=== PATIENT | female | born 1965 | race Two or more races ===

== ENCOUNTER 2018-06-21 13:25 | Day surgery (SDC) | payer OTHER ==
[~2018-06-21 13:25] MED LIST: HYDROCODONE/APAP 5/325 TAB PO SCH
[2018-06-21] MEDS ORDERED: HYDROmorphONE/DILAUDID 2 MG/ML INJ IVP ONE ×2 (14:00→17:31)
[2018-06-21] MEDS ORDERED: ONDANSETRON 4 MG/2 ML VIAL IVP ONE (14:00)
[2018-06-21] MEDS ORDERED: NS 1,000 ML IV ONE ×2 (14:00→17:31)
[2018-06-21 14:18] LABS: PLATELET COUNT 248 10^3/uL (150-400)
[2018-06-21] MEDS ORDERED: IOPAMIDOL (ISOVUE-300) 100 ML BTL ONE (16:31)
--- NOTE | 2018-06-21 17:30 | EDPHY ---
H & P Stated Complaint: abd pain worsening since last night, + nausea, shivering Time Seen by Provider: 06/21/18 13:42 HPI/ROS: CHIEF COMPLAINT: Abdominal pain HISTORY OF PRESENT ILLNESS: 52-year-old female reports that yesterday she developed a midline lower abdominal discomfort described as crampy and slightly distended. She thought maybe she was getting her period. She is perimenopausal and has not had. For about 4 months. Some nausea. She did not developed vaginal bleeding. This morning the pain has been persistent and she is also complaining of some epigastric discomfort. No fever. No diarrhea. No urinary complaints. No similar episodes of pain. No fever, chills, chest pain, shortness of breath, palpitations, vomiting, diarrhea, urinary complaints, headache, lightheadedness. REVIEW OF SYSTEMS: A comprehensive 10 system review of systems was reviewed and is otherwise negative aside from elements mentioned in the history of present illness and medical decision making. PAST MEDICAL HISTORY: Monica menopausal, reports no sexual activity for the last 3 years. On no hormonal replacement therapy. SOCIAL HISTORY: Smoker. VITAL SIGNS Reviewed by me. GENERAL: Well-developed, well-nourished, pleasant, uncomfortable appearing. Rates her pain at 7/10. HEENT: Atraumatic. Eyes: No icterus, no injection. Mouth: Slightly dry mucous membranes. No erythema or lesions. Neck: supple with no adenopathy. LUNGS: Clear to auscultation bilaterally, no wheezes, rhonchi or rales. CARDIAC: Regular rate and rhythm, no rubs, murmurs or gallops. ABDOMEN: [Soft, mild tenderness epigastric area, no guarding or rebound. Moderate midline, right lower quadrant, and left lower quadrant tenderness to palpation with slight distention. BACK: Mild right CVA tenderness. EXTREMITIES: No trauma. No edema. Range of motion is normal throughout. NEURO: Alert and oriented, grossly nonfocal. SKIN: Warm and dry, no rash. PSYCHIATRIC: Normal mentation, no agitation. - Personal History LMP (Females 10-55): Irregular Current Tetanus Diphtheria and Acellular Pertussis (TDAP): Unsure - Medical/Surgical History Hx Asthma: No Hx Chronic Respiratory Disease: No Hx Diabetes: No Hx Cardiac Disease: No Hx Renal Disease: No Hx Cirrhosis: No Hx Alcoholism: No Hx HIV/AIDS: No Hx Splenectomy or Spleen Trauma: No Other PMH: denies - Social History Smoking Status: Heavy smoker Constitutional: Initial Vital Signs Temperature (C) 36.6 C 06/21/18 13:31 Heart Rate 59 L 06/21/18 13:31 Respiratory Rate 16 06/21/18 13:31 Blood Pressure 174/103 H 06/21/18 13:31 O2 Sat (%) 100 06/21/18 13:31 O2 Delivery Mode Room Air O2 (L/minute) 10 Allergies/Adverse Reactions: No Known Allergies Allergy (Unverified 06/21/18 13:35) Home Medications: Medication Instructions Recorded Acetaminophen [Tylenol ES 500 mg 1,000 mg PO DAILY PRN 06/21/18 (*)] Hydrocodone/Acetaminophen [Regan 1 each PO Q4H PRN 1 Days #6 tablet 06/21/18 5-325 Tablet] Hydrocodone/Acetaminophen [Regan 1 each PO Q4H PRN 3 Days #15 tablet 06/21/18 5-325 Tablet] Ibuprofen 600 mg PO Q8H PRN #20 tablet 06/21/18 Medical Decision Making - Diagnostics Imaging Results: Pelvic US: Impression: 1. No uterine leiomyomata. 2. No ovarian torsion or cystic lesions. 3. Left adnexal nonvascular tubular structure, which may represent a thrombosed vein or possibly bowel. 4. Consider additional CT abdomen and pelvis, if clinically indicated. Findings and recommendations discussed with Emergency Department physician, Karen Meyer M.D., at 1555 hours, on June 21, 2018. Final report concurs with initial preliminary interpretation. Dictated By: Nehemiah Walden CT Abd Pelvis Impression: 1. Acute appendicitis with thickening up to 14 mm. 2. L5-S1 spondylolytic grade 1 spondylolisthesis, resulting in bilateral neural foraminal stenosis. Dictated By: Nehemiah Walden ED Course/Re-evaluation: 52-year-old female with midline lower abdominal tenderness and pain. Pelvic ultrasound ordered. No significant abnormalities. No fibroids or ovarian cysts or torsion. Of note, patient's test returned positive. Quantitative HCG was 5.79. Long conversation held with the patient again. Reports notes she will intercourse for the last 3 years. Doubt this low level HCG represents intrauterine . CT scan ordered with IV contrast for further evaluation. CT scan positive for appendicitis with a 14 mm appendix. Discussed with the patient. Advised NPO. Discussed with Dr. Elisabeth Hoffmann. Dr. Rodriguez also aware of the low level positive HCG. Patient admitted to [facility], Dr. Hoffmann, appendicitis. Differential Diagnosis: The differential diagnosis for the patient's abdominal pain was considered including but not limited to ovarian cyst, pelvic inflammatory disease, ovarian torsion, urinary tract infection, related complications, and appendicitis. Consult/Admit Bed Type: Dr Hoffmann [facility] - Data Points Laboratory Results: Laboratory Results 06/21/18 14:07 06/21/18 14:07 Medications Given: Discontinued Medications Bupivacaine HCl (Sensorcaine 0.5% Vial) Confirm Administered Dose 30 ml .ROUTE .STK-MED ONE Stop: 06/21/18 17:56 Last Admin: 06/21/18 20:39 Dose: 20 ml Fentanyl (Sublimaze) 25 - 100 mcg IVP Q5M PRN PRN Reason: PACU, IMMEDIATE Pain control Stop: 06/21/18 21:24 Last Admin: 06/21/18 21:21 Dose: 50 mcg Hydromorphone HCl (Dilaudid) 1 mg IVP EDNOW ONE Stop: 06/21/18 14:01 Last Admin: 06/21/18 14:31 Dose: 1 mg Hydromorphone HCl (Dilaudid) 1 mg IVP EDNOW ONE Stop: 06/21/18 17:32 Last Admin: 06/21/18 18:06 Dose: 1 mg Sodium Chloride (Ns) 1,000 mls @ 0 mls/hr IV EDNOW ONE; Wide Open PRN Reason: Protocol Stop: 06/21/18 14:01 Last Admin: 06/21/18 14:35 Dose: 1,000 mls Sodium Chloride (Ns) 1,000 mls @ 0 mls/hr IV ONCE ONE; Wide Open PRN Reason: Protocol Stop: 06/21/18 17:32 Last Admin: 06/21/18 17:33 Dose: 1,000 mls Ondansetron HCl (Zofran) 4 mg IVP EDNOW ONE Stop: 06/21/18 14:01 Last Admin: 06/21/18 14:31 Dose: 4 mg Departure - Departure Disposition: [facility] Inpatient Acute Clinical Impression: Abdominal pain, Acute appendicitis Condition: Good
[2018-06-21] MEDS ORDERED: BUPIVACAINE 0.5% 30 ML SDV ONE (17:55)
[2018-06-21] MEDS ORDERED: DEXAMETHASONE 4 MG/ML VIAL IVP PRN (18:27)
[2018-06-21] MEDS ORDERED: NALOXONE HCL 0.4 MG/ML INJ IVP PRN ×2 (18:27→20:24)
[2018-06-21] MEDS ORDERED: HYDROmorphONE/DILAUDID 1 MG/ML INJ IVP PRN ×2 (18:27→20:24)
[2018-06-21] MEDS ORDERED: ALBUTEROL 3 ML DEYVIAL IH PRN ×2 (18:27→20:24)
[2018-06-21] MEDS ORDERED: ONDANSETRON 4 MG/2 ML VIAL IVP PRN ×2 (18:27→20:24)
[2018-06-21] MEDS ORDERED: PROPOFOL 200 MG/20 ML VIAL ONE (18:32)
[2018-06-21] MEDS ORDERED: ROCURONIUM 50 MG/5 ML VIAL ONE (18:34)
--- NOTE | 2018-06-21 19:08 | GHP ---
[f rep st] HISTORY AND PHYSICAL DATE OF ADMISSION: 06/21/2018 CHIEF COMPLAINT: Acute appendicitis. HISTORY OF PRESENT ILLNESS: The patient is a 52-year-old woman, who developed low pelvic pain. She thought that it had to do with menstrual cramping. It became more severe throughout the day includin g the upper abdomen and then localized worse in the right lower quadrant. She presented to the [facility] ency room. She had an abdominal CT performed that showed a 14 mm appendix. White count is 11.72. S he is not hungry. PAST SURGICAL HISTORY: D and C. SOCIAL HISTORY: She is a nonsmoker. She is and has 2 children, ages 12 and 16. FAMILY HISTORY: Noncontributory. REVIEW OF SYSTEMS: No fevers or chills. PHYSICAL EXAMINATION: VITAL SIGNS: 36.6, 59, 174/103, 16, and 100% on room air. GENERAL: A pleasa nt, well-nourished, ill patient lying on gurney. HEENT: Normocephalic. No gross hearing deficits. Mucous membranes moist. Pupils equal and round. No scleral icterus. LUNGS: Clear to auscultation bilaterally. No increased work of breathing. CARDIAC: Regular rate. No peripheral edema. ABDOME N: Bowel sounds present. She is soft. She is tender all over, but worse in the right lower quadran t. MUSCULOSKELETAL: Normal nails. NEUROLOGICAL: Grossly intact. PSYCHIATRIC: Mood and affect no rmal. RESULTS: Reviewed. I personally reviewed the results of her laboratory work and CT scan. IMPRESSION/PLAN: The patient has acute appendicitis. We will go to the operating room for a laparos copic appendectomy. The risks and benefits, including but not limited to stroke, heart attack, , blood clots, infection, bleeding, and damage to surrounding structures were discussed. She receive d antibiotics in the emergency room. /[id number]/MODL
[2018-06-21] MEDS ORDERED: fentaNYL 100 MCG/2 ML INJ ONE ×2 (20:10→20:59)
--- NOTE | 2018-06-21 20:24 | PDANEPAE ---
ANE History of Present Illness Anaya Staufferakin ABBE Past Medical History - Cardiovascular History Hx Hypertension: No Hx Arrhythmias: No - Pulmonary History Hx Oxygen in Use at Home: No Hx Sleep Apnea: No - Endocrine History Hx Diabetes: No ANE Review of Systems Review of Systems: ANE Patient History - Allergies Allergies/Adverse Reactions: No Known Allergies Allergy (Unverified 06/21/18 13:35) - Home Medications Home Medications: Acetaminophen [Tylenol ES 500 mg (*)] 1,000 mg PO DAILY PRN 06/21/18 [Last Taken Unknown] - NPO status NPO Since - Liquids (Date): 06/21/18 NPO Since - Liquids (Time): 09:00 NPO Since - Solids (Date): 06/20/18 NPO Since - Solids (Time): 21:00 - Smoking Hx Smoking Status: Heavy smoker ANE Labs/Vital Signs - Labs Result Diagrams: 06/21/18 14:07 06/21/18 14:07 - Vital Signs Blood Pressure: 152/87 Heart Rate: 59 Respiratory Rate: 16 O2 Sat (%): 99 Height: 165 cm Weight: 62 kg ANE Physical Exam - Airway Neck exam: FROM Mallampati Score: Class 2 Mouth exam: normal dental/mouth exam - Pulmonary Pulmonary: clear to auscultation - Cardiovascular Cardiovascular: regular rate and rhythym - ASA Status ASA Status: I, E ANE Anesthesia Plan Anesthesia Plan: general endotracheal anesthesia
[2018-06-21] MEDS ORDERED: SUGAMMADEX SODIUM 200 MG/2 ML VIAL IVP ONE (20:44)
[2018-06-21] MEDS ORDERED: ONDANSETRON 4 MG/2 ML VIAL ONE (20:44)
[2018-06-21] MEDS ORDERED: DEXAMETHASONE 4 MG/ML VIAL ONE (20:44)
--- NOTE | 2018-06-21 20:53 | POSTANESTH ---
Post Anesthetic Evaluation Cardiovascular Status: Normal, Stable Respiratory Status: Normal, Stable Level of Consciousness/Mental Status: Can Participate in Eval, Alert and Oriented Pain Control: Adequate, Prn Tx Ordered Nausea/Vomiting Control: Adequate, Prn Tx Ordered Complications Possibly Related to Anesthesia: None Noted
--- NOTE | 2018-06-21 20:55 | POSTOPPROG ---
Post Op Note Date of Operation: 06/21/18 Surgeon: Elisabeth Hoffmann Anesthesiologist: cesia Anesthesia: GET(General Endotracheal) Pre-op Diagnosis: acute appendicitis Post-op Diagnosis: same Indication: 52 yo with appendicitis Procedure: lap appy Findings: inflamed appendix Inf/Abcess present in the surg proc area at time of surgery?: No EBL: Minimal Specimen(s): appendix
[2018-06-21] MEDS: fentaNYL 100 MCG/2 ML INJ IVP PRN ×2 (21:11→21:21)
--- NOTE | 2018-06-21 22:54 | GOP ---
[f rep st] OPERATIVE REPORT DATE OF OPERATION: 06/21/2018 SURGEON: Elisabeth Hoffmann MD ANESTHESIOLOGIST: Billy Ramirez DO. PREOPERATIVE DIAGNOSIS: Acute appendicitis. POSTOPERATIVE DIAGNOSIS: Acute appendicitis. PROCEDURE PERFORMED: Laparoscopic appendectomy. FINDINGS: Inflamed appendix. SPECIMENS: Appendix. ESTIMATED BLOOD LOSS: 5 cc. INDICATIONS: The patient is a 52 year old who developed abdominal pain. CT scan confirmed acute kelvin endicitis. DESCRIPTION OF PROCEDURE: Patient was brought into the operating room, placed supine on the table, a nd general anesthesia was administered. Her abdomen was prepped and draped in the usual sterile fas ion. I infiltrated all sites with 0.5% Marcaine prior to making incisions. I made an incision benea th her umbilicus. I inserted the Veress needle. It passed the hanging drop test. Her abdomen insuf flated easily to a pressure of 15 mmHg. I placed a 5 mm trocar with a camera at the site. There wer e no injuries from Veress needle placement. Under direct vision, I placed a 5 mm suprapubic trocar a nd a 10 mm trocar in the left lower quadrant. I lifted her cecum up and identified a retrocecal appe ndix. I grasped the appendix and divided the mesoappendix with the Harmonic Scalpel. I transected t he base with an Endo-DANIA 45 white load. The appendix was placed in an EndoCatch bag and retrieved vi a the 10 mm trocar. Hemostasis achieved at the staple line. The ports were removed under direct vis ion. The abdomen allowed to desufflate. The fascia at the 10 mm trocar site was closed with 0 Vicry l. Skin closed with 4-0 Monocryl. Dermabond applied. She was awakened in the operating room, extub ated, and transferred to PACU in stable condition. /[id number]/MODL
[2018-06-21 23:00] VITALS: BP 122/79
== END 2018-06-21 22:40 | disposition home or self-care (01) ==
LOC: UNDOADMOB 17:30 → FSGY 17:30 → UNDODISOB 22:40 → FSGY 22:40
PROVIDERS: ATTEND Surgery
PROC: 0DTJ4ZZ Resection of Appendix, Percutaneous Endoscopic Approach (ICD-10-PCS; principal; 2018-06-21 18:00)
DX: K35.80 Unspecified acute appendicitis (principal); Z32.00 Encounter for pregnancy test, result unknown; F17.210 Nicotine dependence, cigarettes, uncomplicated
CPT/HCPCS: 96374; J1100; J1170; J2405; J2704; J3010; Q9967